=== PATIENT | male | born 1935 | race Caucasian/White ===

== ENCOUNTER 2017-10-18 12:44 | Inpatient (IN) ==
[2017-10-18 13:24] LABS: Basophils # (Auto) 0 K/mcL (0.0-0.3); Basophils % (Auto) 0.1 % (0.0-2.0); Eosinophils # (Auto) 0 K/mcL (0.0-0.7); Eosinophils % (Auto) 0.1 % (0.0-7.0); Granulocytes % (Auto) 80.4 % (38.0-78.0); Lymphocytes # (Auto) 0.7 K/mcL (1.5-4.8); Lymphocytes % (Auto) 6.9 % (15.5-49.0); Mean Cell Volume 97.7 fL (80.0-100.0); Mean Corpuscular Hemoglobin 32.3 pg (26.0-34.0); Monocytes # (Auto) 1.3 K/mcL (0.1-0.9); Monocytes % (Auto) 12.5 % (1.0-12.0); Platelet Count 129 K/mcL (140-440); RBC 3.73 M/mcL (4.50-5.90); Red Cell Distribution Width 14.5 % (11.5-14.5)
[2017-10-18] MEDS ORDERED: IPRATROPIUM/ALBUTEROL 3 ML AMPUL.NEB NEB ONE ×2 (13:38→18:26)
[2017-10-18 13:52] LABS: ALT/SGPT 97 U/l (0-40); Albumin 3.4 gm/dL (3.2-5.2); Alkaline Phosphatase 144 U/L (39-117); Blood Urea Nitrogen 28 mg/dl (8-23)
[2017-10-18] MEDS ORDERED: 0.9 % SODIUM CHLORIDE 1,000 ML IV ONE (14:07)
[2017-10-18 14:21] LABS: Appearance,Urine CLOUDY; Bacteria,Urine FEW /hpf (0); Bilirubin,Urine NEG (NEG); Color,Urine YELLOW; Glucose,Urine (UA) NEGATIVE (NEG); Leukocyte Esterase,Urine 500 /uL (NEG); Mucus,Urine MOD /hpf (0); Protein,Urine 30 mg/dL (NEG); Specific Gravity,Urine 1.014 (1.000-1.035); Urine Amorphous Crystals MOD /hpf (0); Urine Blood 0.03 mg/dL (<0.03); Urine Hyaline Cast 75 /lpf (0-2); Urine RBC 17 /hpf (0-1); Urine Squamous Epithelial Cell 0 /hpf (0-4); Urine Transitional Epi Cells 1 /hpf (0-2); Urine WBC > 182 /hpf (0-4); Urobilinogen,Urine NEG (NEG)
--- NOTE | 2017-10-18 14:39 | XRay Report ---
CLINICAL INFORMATION: Shortness of breath and hypoxia COMPARISON: None. FINDINGS: Heart size is accentuated by lordotic positioning is suboptimal inspiration. The heart is moderately enlarged. Automatic cardiac defibrillator is in satisfactory position. Ectatic thoracic aorta is noted - remainder of mediastinum and pulmonary vessels are normal. Right diaphragm is mildly elevated and there is mild bibasilar atelectasis. IMPRESSION: Moderate cardiomegaly but no evidence of CHF. Minor bibasilar atelectasis Interpreted and Authenticated by: Vinh Pierson 10/18/17
[2017-10-18] MEDS ORDERED: cefTRIAXone 1 GM VIAL IV ONE ×2 (15:10→19:30)
--- NOTE | 2017-10-18 15:17 | Emergency Department Note ---
General Adult HPI - General Chief complaint: Weakness Stated complaint: Weakness Time Seen by Provider: 10/18/17 13:25 Source: patient, family Mode of arrival: wheelchair Limitations: no limitations - History of Present Illness HPI Narrative: 82-year-old male with a two-week history of general malaise and weakness. 2 weeks ago he did have a bladder procedure by Dr. Reynolds and has an appointment in 2 days for follow-up on that. However since his procedure he has had decreased appetite and increasing weakness. He is on Coumadin for atrial fibrillation. In particular the weakness is especially at the right leg and he has had trouble getting that to work like it normally does. He does walk with a walker. He is also had increasing pain at the middle of his low back which is worse lately. Also having pain around the left thigh area. His notes increasing confusion. He is not on oxygen at home but today he is wheezing coughing up yellow sputum and oxygen saturations were 82% on room air on initial intake Patient recently moved from [facility] awaiting transfer to a new primary care doctor from Dr. Reggie Koo in [place] - Related Data Home Medications Medication Instructions Recorded Confirmed acetaminophen ER 650 mg 1 tab PO Q6H 04/23/16 10/18/17 tablet,extended release amiodarone 200 mg tablet 200 mg PO HS tab 04/23/16 10/18/17 atorvastatin 20 mg tablet 20 mg PO QPM tab 04/23/16 10/18/17 carvedilol 25 mg tablet 25 mg PO BID 04/23/16 10/18/17 cholecalciferol (vitamin D3) 1,000 2,000 unit PO QDAY tab 04/23/16 10/18/17 unit tablet fentanyl 12 mcg/hr transdermal 25 mcg TRANSDERMA Q72H 04/23/16 10/18/17 patch losartan 100 mg tablet 100 mg PO QDAY 04/23/16 10/18/17 ocular nutrition supplement 1 tab PO QDAY 04/23/16 10/18/17 pantoprazole 40 mg tablet,delayed 40 mg PO QDAY 04/23/16 10/18/17 release polyethylene glycol 3350 17 17 g PO QDAY 04/23/16 10/18/17 gram/dose oral powder potassium 99 mg tablet 99 mg PO QDAY 04/23/16 10/18/17 tamsulosin 0.4 mg capsule 0.4 mg PO QHS cap 04/23/16 10/18/17 vitamin B complex ER 1 tab PO QDAY 04/23/16 10/18/17 tablet,extended release warfarin 5 mg tablet 5 mg PO DAILY 04/23/16 10/18/17 furosemide 40 mg tablet 40 mg PO QDAY 04/08/17 10/18/17 Hydrocodon-Acetaminophen 5-325 2.5 mg PO Q6H 05/05/17 10/18/17 Ferrous Sulfate [Iron] 325 mg PO DAILY 09/29/17 10/18/17 rOPINIRole [Requip] 0.25 mg PO BID 09/29/17 10/18/17 Allergies Allergy/AdvReac Type Severity Reaction Status Date / Time ciprofloxacin [From Cipro] Allergy Mild Hives Verified 10/18/17 12:44 Hydralazine Allergy Unknown Unknown Verified 10/18/17 12:44 cephalexin [From Keflex] AdvReac Mild Gastrointestinal Verified 10/18/17 12:44 Upset Sulfa (Sulfonamide AdvReac Mild Gastrointestinal Verified 10/18/17 12:44 Antibiotics) Upset penicillin Allergy Mild Rash Uncoded 09/17/17 09:12 Review of Systems All systems ED: reviewed and negative except as stated. Past Medical History - Past Medical History Attestation: Yes: The following information was validated with the patient. Medical history: Reports: atrial fibrillation, cancer (Bladder), hyperlipidemia , hypertension, kidney stones, other (Macular degeneration, Gilbert's, cardiomyopathy, increased PSA, restless leg) Surgical history ED: Reports: heart valve replacement (Aortic), orthopedic, other (Carpal tunnel, foot), pacemaker/AICD, other (TURP) - Social History smoking status: Never smoker Physical Exam Fragile male appears mildly ill. Normocephalic atraumatic. Conjunctive are clear sclerae white and nonicteric. No nasal discharge but audible congestion. Nasal cannula placed at this time. Coughing during exam with yellow sputum production. Oropharynx is pink and moist. Neck is supple without lymphadenopathy thyromegaly or carotid bruit. Heart is regular rate and rhythm scattered perhaps 3 out of 6 early systolic murmur. Lungs are basically clear to auscultation bilaterally but he does have end expiratory wheeze throughout. Abdomen is soft nontender nondistended. No peritoneal signs or guarding. Bilateral psychology associate are normal. Moving against gravity his left leg does seem to be a little stronger than his right at the hip flexor. However this is subtle. He requires assistance to sit up in the bed. He is easily arousable and able answer questions appropriately Limitations: no limitations Course Vital Signs Temperature 98.7 F 10/18/17 12:44 Pulse Rate 60 10/18/17 12:44 Respiratory Rate 22 10/18/17 12:44 Blood Pressure 122/77 10/18/17 12:44 Pulse Oximetry (%) 83 L 10/18/17 12:44 Temperature 98.7 F 10/18/17 12:44 Pulse Rate 59 L 10/18/17 14:08 Respiratory Rate 20 10/18/17 14:08 Blood Pressure 153/85 10/18/17 14:08 Pulse Oximetry (%) 95 10/18/17 14:08 Medical Decision Making - Lab Data Lab results reviewed: Yes I reviewed the patient's lab results. Result diagrams: 10/18/17 12:58 10/18/17 12:58 Lab Results 10/18/17 10/18/17 10/18/17 Range/Units 12:58 12:58 12:58 WBC 10.7 (4.5-11.0) K/mcL RBC 3.73 L (4.50-5.90) M/mcL Hgb 12.0 L (13.5-16.5) g/dL Hct 36.4 L (41.0-55.0) % MCV 97.7 (80.0-100.0) fL MCH 32.3 (26.0-34.0) pg MCHC 33.0 (31.0-36.0) g/dL RDW 14.5 (11.5-14.5) % Plt Count 129 L (140-440) K/mcL MPV 7.9 (7.4-10.4) fL Gran % 80.4 H (38.0-78.0) % Lymph % (Auto) 6.9 L (15.5-49.0) % [place] % (Auto) 12.5 H (1.0-12.0) % Eos % (Auto) 0.1 (0.0-7.0) % Baso % (Auto) 0.1 (0.0-2.0) % Gran # 8.6 H (1.8-8.0) K/mcL Lymph # (Auto) 0.7 L (1.5-4.8) K/mcL [place] # (Auto) 1.3 H (0.1-0.9) K/mcL Eos # (Auto) 0 (0.0-0.7) K/mcL Baso # (Auto) 0 (0.0-0.3) K/mcL VBG Lactic Acid 2.0 (0.5-2.2) mmol/L Sodium 137 (133-145) mmol/L Potassium 3.9 (3.3-5.1) mmol/L Chloride 94 L (96-108) mmol/L Carbon Dioxide 34 H (22-30) mmol/L Anion Gap 9.0 (8-16) BUN 28 H (8-23) mg/dl Creatinine 1.4 H (0.7-1.2) mg/dl GFR Calculation 46 Glucose 119 H (70-105) mg/dL Calcium 10.6 H (8.6-10.4) mg/dl Total Bilirubin 2.6 H (0.0-1.0) mg/dL AST 101 H (0-37) U/l ALT 97 H (0-40) U/l Alkaline Phosphatase 144 H (39-117) U/L Total Protein 6.9 (5.9-8.4) gm/dL Albumin 3.4 (3.2-5.2) gm/dL Globulin 3.5 (2.2-3.7) gm/dL Albumin/Globulin Ratio 1.0 (1.0-2.3) Urine Color Urine Appearance Urine pH (5.0-9.0) Ur Specific [place] (1.000-1.035) Urine Protein (NEG) mg/dL Urine Glucose (UA) (NEG) mg/dL Urine Ketones (NEG) mg/dL Urine Occult Blood (<0.03) mg/dL Urine Nitrate (NEG) Urine Bilirubin (NEG) mg/dL Urine Urobilinogen (NEG) mg/dL Ur Leukocyte Esterase (NEG) /uL Urine RBC (0-1) /hpf Urine WBC (0-4) /hpf Ur Squamous Epith Cells (0-4) /hpf Ur Transition Epith Cell (0-2) /hpf Amorphous Crystals (0) /hpf Urine Bacteria (0) /hpf Hyaline Casts (0-2) /lpf Urine Mucus (0) /hpf Ur Culture Indicated? 10/18/17 Range/Units 13:46 WBC (4.5-11.0) K/mcL RBC (4.50-5.90) M/mcL Hgb (13.5-16.5) g/dL Hct (41.0-55.0) % MCV (80.0-100.0) fL MCH (26.0-34.0) pg MCHC (31.0-36.0) g/dL RDW (11.5-14.5) % Plt Count (140-440) K/mcL MPV (7.4-10.4) fL Gran % (38.0-78.0) % Lymph % (Auto) (15.5-49.0) % [place] % (Auto) (1.0-12.0) % Eos % (Auto) (0.0-7.0) % Baso % (Auto) (0.0-2.0) % Gran # (1.8-8.0) K/mcL Lymph # (Auto) (1.5-4.8) K/mcL [place] # (Auto) (0.1-0.9) K/mcL Eos # (Auto) (0.0-0.7) K/mcL Baso # (Auto) (0.0-0.3) K/mcL VBG Lactic Acid (0.5-2.2) mmol/L Sodium (133-145) mmol/L Potassium (3.3-5.1) mmol/L Chloride (96-108) mmol/L Carbon Dioxide (22-30) mmol/L Anion Gap (8-16) BUN (8-23) mg/dl Creatinine (0.7-1.2) mg/dl GFR Calculation Glucose (70-105) mg/dL Calcium (8.6-10.4) mg/dl Total Bilirubin (0.0-1.0) mg/dL AST (0-37) U/l ALT (0-40) U/l Alkaline Phosphatase (39-117) U/L Total Protein (5.9-8.4) gm/dL Albumin (3.2-5.2) gm/dL Globulin (2.2-3.7) gm/dL Albumin/Globulin Ratio (1.0-2.3) Urine Color Yellow Urine Appearance Cloudy Urine pH 5.0 (5.0-9.0) Ur Specific [place] 1.014 (1.000-1.035) Urine Protein 30 A (NEG) mg/dL Urine Glucose (UA) Negative (NEG) mg/dL Urine Ketones Neg (NEG) mg/dL Urine Occult Blood 0.03 A (<0.03) mg/dL Urine Nitrate Neg (NEG) Urine Bilirubin Neg (NEG) mg/dL Urine Urobilinogen Neg (NEG) mg/dL Ur Leukocyte Esterase 500 A (NEG) /uL Urine RBC 17 H (0-1) /hpf Urine WBC > 182 H (0-4) /hpf Ur Squamous Epith Cells 0 (0-4) /hpf Ur Transition Epith Cell 1 (0-2) /hpf Amorphous Crystals Mod A (0) /hpf Urine Bacteria Few A (0) /hpf Hyaline Casts 75 H (0-2) /lpf Urine Mucus Mod (0) /hpf Ur Culture Indicated? Yes - Radiology Data Radiology results reviewed: Yes I reviewed the patient's radiology results. Chest x-ray shows cardiomegaly and pacemaker. - EKG Data EKG #1 EKG attestation: Yes I reviewed and interpreted this EKG. EKG results narrative: EKG shows lots of artifact paced rhythm rate of 60 Disposition Pt seen by [facility] DESIGNER/PA only: No Clinical Impression: Community acquired pneumonia of right lower lobe of lung UTI (urinary tract infection) Qualifiers: Urinary tract infection type: acute cystitis Hematuria presence: with hematuria Qualified Code(s): N30.01 - Acute cystitis with hematuria Summary: After initial interview and exam patient is given a breathing treatment with DuoNeb which did seem to help some. Symptoms worrisome for worrisome and UTI versus kidney infection (pyelonephritis). Rocephin started for possible UTI: Labs and imaging consistent with UTI and right lower lobe pneumonia. Antibiotic choices limited by allergy list Discussed situation with patient's family and hospitalist. Patient will be admitted to Dr. Patel for further inpatient care Disposition: Xfer As Inpt ([facility]) Condition: Serious Referrals: Reggie Koo [Primary Care Provider] -
[2017-10-18] MEDS ORDERED: LACTATED RINGERS 1,000 ML IV ONE (16:41)
--- NOTE | 2017-10-18 17:32 | Internal Med History&Physical ---
Medical - H&P: HPI Patient information: Note initiated : 10/18/17 at 5:30 pm Service Date, if different from initiated Date: [] Patient: Hao Dwyer a 82 y/o M admitted on for Weakness. Chief Complaint: [] History of present illness: Mr. Dwyer is a 82 year old M with h/o chf, bladder cancer, afib, aortic valve replacement, AICD and pacemaker presents to the ER with complaints of back pain , weakness not feelign well x 2 days The patient had TURBT done 2 weeks ago and was doing well after the procedure, 2 days ago he noticed that he was getting weak, he had back pain, in the lower back, radiating down the left leg, worse with activity better with rest, weakness in left leg? but generally weak in both legs, his noticed he is more confused, he also had some cough with whitish dischage. Over the last few days he notes his urine color has changed from clear to yellow and he is going more often, he attributes that to use of lasix. the patient given his worsening condition came to the ER for further evaluation , in the ER he was hypoxic on presentation 83% on room air which corrected promplty with 2 L of oxygen, his labs showed mild renal dysfunction, hypercalcemia mild. His ua suggestive of UTI He underwent a CTA lungs neg for PE, right basilar pna, as per verbal report to ER provider by [facility], no acute findings on CT head and CT lumbar spine The patient admitted to the hospital for further management patient is weak but able to answer questions, daugther in law by the bed side who also filledi n some history, who notes she and her (pts son) is the poa. patient wishes to be full code Pt recently moved here from [facility], does not have a local pcp, have [facility] [place]. All systems: reviewed and no additional remarkable complaints except as stated ( as per hpi rest neg) Medical - H&P: PMH Medical history: Medical History (Last Reviewed 09/17/17 @ 09:13 by Arabella Macario RN) Bilateral wrist pain (Chronic) Low back pain (Chronic) Numbness of anterior thigh (Chronic) Macular degeneration (Chronic) Head trauma (Chronic) Anemia (Chronic) Renal lithiasis (Chronic) Intracerebral hematoma (Chronic) Degenerative joint disease (Chronic) Gilbert's syndrome (Chronic) Cardiomyopathy (Chronic) Aortic valvular disease (Chronic) Hyperlipidemia (Chronic) Pneumonia (Chronic) Atrial fibrillation (Chronic) Hypertension (Chronic) Elevated PSA (Chronic) Benign prostatic hypertrophy (Chronic) Bladder outlet obstruction (Chronic) Urinary frequency (Chronic) Blood in urine (Chronic) Bladder mass (Chronic) Surgical history: Past Surgical History (Last Reviewed 09/17/17 @ 09:13 by Arabella Macario, ANNIE) History of aortic valve replacement with porcine valve (Chronic) History of bilateral carpal tunnel release (Chronic) History of colonoscopy (Chronic) History of coronary artery bypass graft (Chronic) History of cystoscopy (Chronic) History of liver biopsy (Chronic) History of surgery (Chronic 09/27/13) Status post left inguinal herniorrhaphy (Chronic) Status post right foot surgery (Chronic) Pertinent family history: Family History (Last Reviewed 09/17/17 @ 09:13 by Arabella Macario, ANNIE) Other HTN (hypertension) Medical - H&P: Meds Home Medications Medication Instructions Recorded Confirmed Type acetaminophen ER 650 mg 1 tab PO Q6H 04/23/16 10/18/17 History tablet,extended release amiodarone 200 mg tablet 200 mg PO HS tab 04/23/16 10/18/17 History atorvastatin 20 mg tablet 20 mg PO QPM tab 04/23/16 10/18/17 History carvedilol 25 mg tablet 25 mg PO BID 04/23/16 10/18/17 History cholecalciferol (vitamin D3) 1,000 2,000 unit PO QDAY tab 04/23/16 10/18/17 History unit tablet fentanyl 12 mcg/hr transdermal 25 mcg TRANSDERMA Q72H 04/23/16 10/18/17 History patch losartan 100 mg tablet 100 mg PO QDAY 04/23/16 10/18/17 History ocular nutrition supplement 1 tab PO QDAY 04/23/16 10/18/17 History pantoprazole 40 mg tablet,delayed 40 mg PO QDAY 04/23/16 10/18/17 History release polyethylene glycol 3350 17 17 g PO QDAY 04/23/16 10/18/17 History gram/dose oral powder potassium 99 mg tablet 99 mg PO QDAY 04/23/16 10/18/17 History tamsulosin 0.4 mg capsule 0.4 mg PO QHS cap 04/23/16 10/18/17 History vitamin B complex ER 1 tab PO QDAY 04/23/16 10/18/17 History tablet,extended release warfarin 5 mg tablet 5 mg PO DAILY 04/23/16 10/18/17 History furosemide 40 mg tablet 40 mg PO QDAY 04/08/17 10/18/17 History Hydrocodon-Acetaminophen 5-325 2.5 mg PO Q6H 05/05/17 10/18/17 History Ferrous Sulfate [Iron] 325 mg PO DAILY 09/29/17 10/18/17 History rOPINIRole [Requip] 0.25 mg PO BID 09/29/17 10/18/17 History Allergies Allergy/AdvReac Type Severity Reaction Status Date / Time ciprofloxacin [From Cipro] Allergy Mild Hives Verified 10/18/17 12:44 Hydralazine Allergy Unknown Unknown Verified 10/18/17 12:44 cephalexin [From Keflex] AdvReac Mild Gastrointestinal Verified 10/18/17 12:44 Upset Sulfa (Sulfonamide AdvReac Mild Gastrointestinal Verified 10/18/17 12:44 Antibiotics) Upset penicillin Allergy Mild Rash Uncoded 09/17/17 09:12 Medical - H&P: Exam - Constitutional Vitals: Temp Pulse Resp BP Pulse Ox 98.7 F 59 L 26 H 132/75 94 10/18/17 12:44 10/18/17 17:26 10/18/17 17:26 10/18/17 17:26 10/18/17 17:26 Exam: GENERAL: The patient is a well-developed, well-nourished in no apparent distress. Is alert and oriented x3. VITAL SIGNS: Reviewed and as noted elsewhere. HEENT: Head is normocephalic and atraumatic. Extraocular muscles are intact. Pupils are equal, round, and reactive to light, left eye has increased secretions. Nares appeared normal. Mouth appears any without lesions. Mucous membranes are moist. NECK: Normal to inspection, Supple, No lymphadenopathy or thyromegaly. LUNGS: Air entry equal on both sides, prolonged exp phase noted, mild exp wheezing present, No accessory muscles of respiration HEART: Regular rate and rhythm normal, S1 and S2 heard, no Gallop, S3 or Rub Noted, No Gross murmur heard.(evaluated in ER) ABDOMEN: Soft, nontender, and nondistended. Positive bowel sounds. No hepatosplenomegaly was noted. EXTREMITIES: No cyanosis, clubbing, rash, lesions , edema present +++ NEUROLOGIC: Cranial nerves II through XII are grossly intact. Motor and Sensory System Grossly Intact, he has generalized weaknes in both lower exreities 2+-3 strength in both legs. upper extremity 4/5, lower extremity strength limited by pain as per pt PSYCHIATRIC: Normal affect, Normal Mood. Appropriate Behavior. SKIN: No ulceration or wounds noted, No jaundice, No rash noted. Medical - H&P: Reslt - Labs CBC & Chem 7: 10/18/17 12:58 10/18/17 12:58 Labs: Short CBC 10/18/17 Range/Units 12:58 WBC 10.7 (4.5-11.0) K/mcL Hgb 12.0 L (13.5-16.5) g/dL Hct 36.4 L (41.0-55.0) % Plt Count 129 L (140-440) K/mcL BMP 10/18/17 12:58 Sodium 137 Potassium 3.9 Chloride 94 L Carbon Dioxide 34 H BUN 28 H Creatinine 1.4 H Glucose 119 H Calcium 10.6 H Liver Function 10/18/17 Range/Units 12:58 Total Bilirubin 2.6 H (0.0-1.0) mg/dL AST 101 H (0-37) U/l ALT 97 H (0-40) U/l Alkaline Phosphatase 144 H (39-117) U/L Albumin 3.4 (3.2-5.2) gm/dL Urine 10/18/17 Range/Units 13:46 Urine Color Yellow Urine Appearance Cloudy Urine pH 5.0 (5.0-9.0) Ur Specific [place] 1.014 (1.000-1.035) Urine Protein 30 A (NEG) mg/dL Urine Glucose (UA) Negative (NEG) mg/dL Medical - H&P: A/P - Narrative A/P Narrative: A/P Pneumonia, no recent hospital stay, no h/o aspiration, treat as cap, ceftriaxone and zithromax, blood cx sent, will order sputum cx, mycoplasma, urine strep and urine legionella antigen ordered. Reactive airway disease- no h/o copd, but pt has wheezing on exam, duonebs q4hrs , budesonide for now, monitor. Acute hypoxic respiratory failure- supplemental oxygen via nasal canula, if worsens, consider bipap/ intubation. Urinary tract infection- IV rocephin, recent procedure done, await microbiology Bladder cancer- follows with DR Reynolds Back pain- chr issue on fentanyl for same, uses half of hydrocodone, use tylenol scheduled, oxycodone prn, continue fentnayl patch, await CT lumbar spine report. hypercalcemia- genesis 10.6 was normal before, dehydration? pt does have poor oral intake, did get IVF in the ER will trend for now Acute Kidney injury, creat is 1.4, baseline 10.-1.1, IVF given in ER, monitor, but he also got contrast, so could worsen, monitor for now. CHF/CAD/Afib?HLD- rate controlled, s/p aicd, pacemaker, on couamdin, check inr, resume amiodarone DVT on coumadin, check INR if subtherapeutic, start on hep sq Diet Cardiac Full code Social History - Social History marital status: occupational status: retired - Tobacco smoking status: Never smoker - Alcohol alcohol intake frequency: a few times a week - Substance use substance use type: does not use
[2017-10-18] MEDS ORDERED: ONDANSETRON 4 MG/2 ML VIAL IV PRN (17:54)
[2017-10-18] MEDS ORDERED: fentaNYL 12 MCG PATCH TD SCH (17:54)
[2017-10-18] MEDS ORDERED: MAGNESIUM HYDROXIDE 30 ML ORAL.SUSP PO PRN (17:54)
[2017-10-18] MEDS ORDERED: AZITHROMYCIN 500 MG in DEXTROSE 5% IN WATER 250 ML IV ONE (17:54)
[2017-10-18] MEDS ORDERED: BUDESONIDE 0.5 MG/2 ML AMPUL.NEB NEB ONE (18:27)
--- NOTE | 2017-10-18 19:11 | Cat Scan Report ---
CLINICAL INFORMATION: Right leg weakness COMPARISON: None. TECHNIQUE: 2.5 mm helical slices were obtained in the skull base to vertex. Following reconstruction, axial reformatted images were reviewed at bone and parenchymal windows. The exam was performed using radiation dose optimization techniques including, but not limited to, automated exposure control, adjustment of the mA and/or kV according to patient size and use of iterative reconstruction technique. FINDINGS: A moderate size remote cortical-based infarct of the lateral right temporal and posterior right frontal lobes is appreciated. The ventricles, sulci, fissures and cisterns are enlarged compatible with mild atrophy. Ex vacuo dilatation of the right lateral ventricle atria due to the adjacent infarct. No extra-axial fluid collection appreciated. Patchy chronic ischemic changes noted in the knee cerebral white matter. No intracerebral hemorrhage, mass effect or edema. 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 No acute findings Interpreted and Authenticated by: Vinh Pierson 10/18/17
[2017-10-18] MEDS: IPRATROPIUM/ALBUTEROL 3 ML AMPUL.NEB NEB SCH ×2 (19:15→23:45)
[2017-10-18] MEDS: BUDESONIDE 0.5 MG/2 ML AMPUL.NEB NEB SCH (19:15)
--- NOTE | 2017-10-18 19:27 | Cat Scan Report ---
CLINICAL INFORMATION: Wheezing and shortness of breath COMPARISON: None. TECHNIQUE: 80 cc of Isovue-300 were injected intravenously. Using SmartPrep to maximize pulmonary artery opacification, 2.5 mm helical slices were obtained from the lung apices through the lung bases. Following reconstruction, 2.5 mm sagittal, coronal, and axial reformations were processed. The exam was reviewed at mediastinal, lung, and bone windows. The exam was performed using radiation dose optimization techniques including, but not limited to, automated exposure control, adjustment of the mA and/or kV according to patient size and use of iterative reconstruction technique. FINDINGS: Pulmonary parenchymal windows show mild chronic bronchitis changes and patchy stranding airspace disease in both lower lobes which is likely scarring and atelectasis. No definite infiltrates. Tiny bilateral pleural effusions noted. Mediastinal windows show the pulmonary arteries are well opacified - no evidence of embolus. Thoracic aorta is normal in contour and caliber. Sternotomy/CABG changes noted. There is no adenopathy in the mediastinal hilar or axillary regions. Esophagus is normal. Heart is markedly enlarged. Pacemaker leads in satisfactory position Images through the abdomen show multiple tiny stones layering of the gallbladder with a single 16 mm stone. A few small cysts in the superior kidneys noted. The spleen and visualized liver are normal. Bone windows show moderate degenerative disc disease throughout the thoracic spine. A few old healed fractures of the right upper posterior ribs noted IMPRESSION: 1. No evidence of pulmonary embolus. 2. Moderate patchy, stranding airspace disease in both lower lobes likely combination of scarring and atelectasis. 3. Tiny bilateral pleural effusions 4. Cholelithiasis Interpreted and Authenticated by: Vinh Pierson 10/18/17
[2017-10-18] MEDS ORDERED: fentaNYL 25 MCG PATCH ONE (20:09)
--- NOTE | 2017-10-18 20:10 | Cat Scan Report ---
CLINICAL INFORMATION: Back pain COMPARISON: CT lumbar myelogram 12/19/2016 TECHNIQUE: 0.625 mm helical slices were obtained from the mid T12 through mid S2 vertebral bodies. Following reconstruction, 2.5 mm coronal, sagittal, and axial reformations (angle to the disc spaces) were processed. Exam was reviewed at bone and soft tissue windows.The exam was performed using radiation dose optimization techniques including, but not limited to, automated exposure control, adjustment of the mA and/or kV according to patient size and use of iterative reconstruction technique. FINDINGS: Mild leftward curve is again noted. No abnormal subluxation. There is minimal chronic wedging of the L1, L2, L3 and L4 vertebral bodies which is unchanged. There are no new osseous abnormalities. Soft tissues are normal. At T12-L1 and L1-2 there is minimal annular bulge and mild facet arthropathy. At L2-3, moderate broad disc protrusion and facet arthropathy result in mild central canal stenosis At L3-4, moderate broad disc spur complex and facet arthropathy result in moderate central canal and mild bilateral IV foraminal narrowing. At L4-5, mild broad disc spur complex and facet arthropathy result in mild central canal, moderate left and mild right IV foraminal narrowing possible thickening of the exiting left L4 nerve root At L5-S1, moderate broad disc spur complex with left-sided asymmetry results in mild left IV foraminal narrowing slightly impinging the exiting left L5 nerve root. There is moderate facet arthropathy IMPRESSION: 1. Multilevel degenerative change - stable since the lumbar myelogram CT nearly one year ago Interpreted and Authenticated by: Vinh Pierson 10/18/17
[2017-10-18] MEDS ORDERED: WARFARIN 5 MG TABLET PO ONE (20:45)
[2017-10-18] MEDS: ACETAMINOPHEN 325 MG TABLET PO SCH (21:10)
[2017-10-18] MEDS: ATORVASTATIN 20 MG TABLET PO SCH (21:11)
[2017-10-18] MEDS: rOPINIRole 0.25 MG TABLET PO SCH (21:11)
[2017-10-18] MEDS: AMIODARONE HCL 200 MG TABLET PO SCH (21:12)
[2017-10-18] MEDS: TAMSULOSIN 0.4 MG CAPSULE PO SCH (21:12)
[2017-10-18] MEDS ORDERED: fentaNYL 25 MCG PATCH TD SCH (22:00)
[2017-10-18] MEDS: 0.9 % SODIUM CHLORIDE 10 ML SYRINGE IV SCH (22:42)
[2017-10-19] MEDS: IPRATROPIUM/ALBUTEROL 3 ML AMPUL.NEB NEB SCH ×6 (03:01→22:01)
[2017-10-19 05:21] LABS: Basophils # (Auto) 0 K/mcL (0.0-0.3); Basophils % (Auto) 0 % (0.0-2.0); Eosinophils # (Auto) 0 K/mcL (0.0-0.7); Eosinophils % (Auto) 0.2 % (0.0-7.0); Granulocytes % (Auto) 83.2 % (38.0-78.0); Lymphocytes # (Auto) 0.6 K/mcL (1.5-4.8); Lymphocytes % (Auto) 5.6 % (15.5-49.0); Mean Corpuscular HGB Conc 32.9 g/dL (31.0-36.0); Mean Corpuscular Hemoglobin 32.5 pg (26.0-34.0); Monocytes # (Auto) 1.3 K/mcL (0.1-0.9); Platelet Count 145 K/mcL (140-440); RBC 3.56 M/mcL (4.50-5.90); Red Cell Distribution Width 14.6 % (11.5-14.5)
[2017-10-19 06:01] LABS: ALT/SGPT 111 U/l (0-40); Albumin 3.3 gm/dL (3.2-5.2); Alkaline Phosphatase 129 U/L (39-117); Bilirubin,Direct 0.4 mg/dL (0.0-0.3); Blood Urea Nitrogen 26 mg/dl (8-23); Gamma Glutamyl Transpeptidase 23 U/L (8-61); Uric Acid 3.8 mg/dL (2.5-8.0)
[2017-10-19] MEDS: CARVEDILOL 12.5 MG TABLET PO SCH ×2 (07:26→16:27)
[2017-10-19] MEDS ORDERED: VANCOMYCIN PER PHARMACY IV SCH (07:31)
[2017-10-19] MEDS: BUDESONIDE 0.5 MG/2 ML AMPUL.NEB NEB SCH ×2 (08:08→21:58)
[2017-10-19] MEDS: rOPINIRole 0.25 MG TABLET PO SCH ×2 (08:15→20:39)
[2017-10-19] MEDS: 0.9 % SODIUM CHLORIDE 10 ML SYRINGE IV SCH ×3 (08:15→23:21)
[2017-10-19] MEDS: ACETAMINOPHEN 325 MG TABLET PO SCH ×2 (08:15→14:57)
[2017-10-19] MEDS: VANCOMYCIN 1,500 MG in 0.9 % SODIUM CHLORIDE 500 ML IV SCH ×2 (08:42→20:38)
[2017-10-19] MEDS ORDERED: PANTOPRAZOLE 40 MG TABLET PO SCH (09:00)
[2017-10-19] MEDS ORDERED: cefTRIAXone 2 GM in DEXTROSE 5% IN WATER 50 ML IV SCH (09:00)
--- NOTE | 2017-10-19 13:09 | Internal Med Progress Note ---
Medical - PN: Subj Patient information: Note initiated : 10/19/17 at 1:06 pm Service Date, if different from initiated Date: [] Patient: Hao Dwyer a 82 y/o M admitted on 10/18/17 for Weakness. Chief Complaint: [] Interval history: Mr. Dwyer is a 82 year old M with h/o chf, bladder cancer, afib, aortic valve replacement, AICD and pacemaker presents to the ER with complaints of back pain , weakness not feelign well x 2 days The patient had TURBT done 2 weeks ago and was doing well after the procedure, 2 days ago he noticed that he was getting weak, he had back pain, in the lower back, radiating down the left leg, worse with activity better with rest, weakness in left leg? but generally weak in both legs, his noticed he is more confused, he also had some cough with whitish dischage. Over the last few days he notes his urine color has changed from clear to yellow and he is going more often, he attributes that to use of lasix. the patient given his worsening condition came to the ER for further evaluation , in the ER he was hypoxic on presentation 83% on room air which corrected promplty with 2 L of oxygen, his labs showed mild renal dysfunction, hypercalcemia mild. His ua suggestive of UTI He underwent a CTA lungs neg for PE, right basilar pna, as per verbal report to ER provider by [facility], no acute findings on CT head and CT lumbar spine The patient admitted to the hospital for further management patient is weak but able to answer questions, daugther in law by the bed side who also filledi n some history, who notes she and her (pts son) is the poa. patient wishes to be full code Pt recently moved here from [facility], does not have a local pcp, have applied to [facility] in [place]. 10/19 Patient seen and examined, no acute overnight events Patient still complains about back pain, CT reviewed radiology reports as no acute changes. The patient does not feel much improved compared to yesterday however appears to be clinically much better. Patient's WBC count is elevated compared to yesterday, blood cultures 2 out of 2 bottles positive for gram-positive, urine cultures showing enterococcus. Liver function test today is slightly worse. Echocardiogram has been ordered liver ultrasound has been ordered will follow through. If blood cultures are growing enterococcus then I will get a CT abdomen and pelvis given history of recent instrumentation. The patient did ambulate today with help of therapy, one-person assist according to the nursing staff Pertinent ROS: Denies headache, dizziness Denies chest pain, palpitations Denies cough or shortness of breath Denies abdominal pain, nausea or vomiting. Back pain present - Constitutional Vitals: Vital Signs Temp Pulse Resp BP Pulse Ox 98.3 F 59 L 18 136/70 92 10/19/17 12:05 10/19/17 12:05 10/19/17 12:05 10/19/17 12:05 10/19/17 12:05 Period Temp Pulse Resp BP Sys/Carpenter Pulse Ox Last 24 Hr 98.3 F-101.5 F 58-64 12-28 119-156/65-94 90-96 Intake and Output 10/18/17 10/19/17 10/19/17 21:59 05:59 13:59 Intake Total 1000 / 1000 250 / 250 270 / 270 Output Total 325 / 325 / 1 402 / 402 Balance 675 / 675 249 / 249 -132 / -132 Weight 209 lb Intake & Output: Intake & Output 10/18/17 10/19/17 10/19/17 21:59 05:59 13:59 Intake Total 1000 / 1000 250 / 250 270 / 270 Output Total 325 / 325 402 / 402 Balance 675 / 675 249 / 249 -132 / -132 Weight 209 lb Intake: IV 1000 / 1000 50 / 50 Sodium Chloride 0.9% 1,000 ml @ 1000 / 1000 Wide Open IV BOLUS ONE Rx#: [id number] Rocephin 2 gm In Dextrose 5% in 50 / 50 Water 50 ml @ 100 mls/hr IV DAILY KATRIN Rx#:[id number] Oral 250 / 250 220 / 220 Output: Void Amount 325 / 325 400 / 400 # of times incontinent of urine 2 / 2 Other: Meal Breakfast Percent of Meal Consumed 100% Feeding Ability Needs Supervision Medical - PN: Obj Da - Labs CBC & Chem 7: 10/19/17 03:55 10/19/17 03:55 Labs: Abnormal Lab Results 10/19/17 10/19/17 10/19/17 03:55 03:55 03:55 WBC 11.5 H RBC 3.56 L Hgb 11.6 L Hct 35.2 L RDW 14.6 H Plt Count Gran % 83.2 H Lymph % (Auto) 5.6 L [place] % (Auto) Gran # 9.5 H Lymph # (Auto) 0.6 L [place] # (Auto) 1.3 H PT 33.8 H INR 3.3 H Chloride Carbon Dioxide 34 H BUN 26 H Creatinine Glucose Calcium 10.5 H Total Bilirubin 1.9 H Direct Bilirubin 0.4 H AST 126 H ALT 111 H Alkaline Phosphatase 129 H Urine Protein Urine Occult Blood Ur Leukocyte Esterase Urine RBC Urine WBC Amorphous Crystals Urine Bacteria Hyaline Casts 10/18/17 10/18/17 10/18/17 13:46 12:58 12:58 WBC RBC Hgb Hct RDW Plt Count Gran % Lymph % (Auto) [place] % (Auto) Gran # Lymph # (Auto) [place] # (Auto) PT 27.8 H INR 2.6 H Chloride 94 L Carbon Dioxide 34 H BUN 28 H Creatinine 1.4 H Glucose 119 H Calcium 10.6 H Total Bilirubin 2.6 H Direct Bilirubin AST 101 H ALT 97 H Alkaline Phosphatase 144 H Urine Protein 30 A Urine Occult Blood 0.03 A Ur Leukocyte Esterase 500 A Urine RBC 17 H Urine WBC > 182 H Amorphous Crystals Mod A Urine Bacteria Few A Hyaline Casts 75 H 10/18/17 12:58 WBC RBC 3.73 L Hgb 12.0 L Hct 36.4 L RDW Plt Count 129 L Gran % 80.4 H Lymph % (Auto) 6.9 L [place] % (Auto) 12.5 H Gran # 8.6 H Lymph # (Auto) 0.7 L [place] # (Auto) 1.3 H PT INR Chloride Carbon Dioxide BUN Creatinine Glucose Calcium Total Bilirubin Direct Bilirubin AST ALT Alkaline Phosphatase Urine Protein Urine Occult Blood Ur Leukocyte Esterase Urine RBC Urine WBC Amorphous Crystals Urine Bacteria Hyaline Casts Meds: Medications Acetaminophen (Tylenol) 1,000 mg PO TID [facility] Last Admin: 10/19/17 08:15 Dose: 1,000 mg Albuterol/Ipratropium (Duoneb) 3 ml NEB Q4HRT [facility] Last Admin: 10/19/17 11:49 Dose: 3 ml Amiodarone HCl (Cordarone) 200 mg PO HS [facility] Last Admin: 10/18/17 21:12 Dose: 200 mg Atorvastatin Calcium (Lipitor) 20 mg PO QPM [facility] Last Admin: 10/18/17 21:11 Dose: 20 mg Budesonide (Pulmicort) 0.5 mg NEB Q12 [facility] Last Admin: 10/19/17 08:08 Dose: 0.5 mg Carvedilol (Coreg) 25 mg PO BIDCC [facility] Last Admin: 10/19/17 07:26 Dose: Not Given Fentanyl (Duragesic) 25 mcg TD Q72H [facility] Last Admin: 10/18/17 21:15 Dose: Not Given Azithromycin 250 mg/ Dextrose 250 mls @ 250 mls/hr IV DAILY [facility] Stop: 10/22/17 09:59 Ceftriaxone Sodium 2 gm/ (Dextrose) 50 mls @ 100 mls/hr IV DAILY [facility] Last Infusion: 10/19/17 08:46 Dose: Infused Vancomycin HCl 1,500 mg/ (Sodium Chloride) 500 mls @ 333.3 mls/hr IV Q12H [facility] Last Admin: 10/19/17 08:42 Dose: 333.3 mls/hr Magnesium Hydroxide (Milk Of Magnesia) 30 ml PO DAILYP PRN PRN Reason: Constipation Ondansetron HCl (Zofran) 4 mg IV Q6HP PRN PRN Reason: Nausea And Vomiting Oxycodone HCl (Roxicodone) 5 mg PO Q4HP PRN PRN Reason: PAIN LEVEL 3-6 Pantoprazole Sodium (Protonix) 40 mg PO ACB [facility] Ropinirole HCl (Requip) 0.25 mg PO BID [facility] Last Admin: 10/19/17 08:15 Dose: 0.25 mg Sodium Chloride (Saline Flush) 10 ml IV Q8 [facility] Last Admin: 10/19/17 08:15 Dose: 10 ml Tamsulosin HCl (Flomax) 0.4 mg PO QHS [facility] Last Admin: 10/18/17 21:12 Dose: 0.4 mg Vancomycin HCl (Vancomycin Per Pharmacy) 1 order IV [facility] [place] Warfarin Sodium (Coumadin Per Pharmacy) 1 order PO [facility] [place] Medical - PN: A/P - Time Spent With Patient Total time spent is greater than 50% in coordination of care (as documented) at patient's floor/unit and/or counseling patient: - Narrative A/P Narrative: A/P Pneumonia, no recent hospital stay, no h/o aspiration, treat as cap, ceftriaxone and zithromax, blood cx sent, will order sputum cx, mycoplasma, urine strep and urine legionella antigen ordered. Reactive airway disease- no h/o copd, but pt has wheezing on exam, duonebs q4hrs , budesonide for now, monitor. Acute hypoxic respiratory failure- supplemental oxygen via nasal canula, if worsens, consider bipap/ intubation. Urinary tract infection/ enterococcous species- IV rocephin, recent procedure done, , iV vanco added Gram positive bactermia 2/2, vanco added, repeat cx sent, echo to look for endocardiitis, consider CT abdomen pelvis given recent instrumentation in bladder. Bladder cancer- follows with DR Reynolds Back pain- chr issue on fentanyl for same, uses half of hydrocodone, use tylenol scheduled, oxycodone prn, continue fentnayl patch, hypercalcemia- calcium still elevated, monitor for now, give 1L saline infusion. Abnl LFT- get liver usg, Acute Kidney injury, resolved, creat is 1.1 today. continue hydration CHF/CAD/Afib?HLD- rate controlled, s/p aicd, pacemaker, on couamdin, check inr, resume amiodarone DVT on coumadin, management per pharamcy, inr 3.3 today Diet Cardiac Full cod daughter in law updated on the plan of care, Medical - PN: Qual - VTE Deep Vein Thrombosis/Pulmonary Embolism Present on Admission: No
[2017-10-19] MEDS ORDERED: 0.9 % SODIUM CHLORIDE 1,000 ML IV SCH (13:15)
[2017-10-19] MEDS: AZITHROMYCIN 250 MG in DEXTROSE 5% IN WATER 250 ML IV SCH (13:39)
--- NOTE | 2017-10-19 14:02 | Ultrasound Report ---
CLINICAL INFORMATION: Increased LFTs COMPARISON: 10/18/2017 CT. FINDINGS: Liver is normal in size configuration and echotexture without focal lesion. There are multiple stones within the gallbladder. Gallbladder wall is normal thickness - 2 mm. There is no focal tenderness over the gallbladder. Common bile duct is normal: 5 mm. Pancreas is unremarkable. No free fluid IMPRESSION: Liver is unremarkable. Cholelithiasis. Gallbladder and bile ducts are otherwise normal Interpreted and Authenticated by: Vinh Pierson 10/19/17
[2017-10-19] MEDS: ACETAMINOPHEN 500 MG TABLET PO SCH (20:38)
[2017-10-19] MEDS: AMIODARONE HCL 200 MG TABLET PO SCH (20:39)
[2017-10-19] MEDS: oxyCODONE HCL 5 MG TABLET PO PRN (20:39)
[2017-10-19] MEDS: ATORVASTATIN 20 MG TABLET PO SCH (20:39)
[2017-10-19] MEDS: TAMSULOSIN 0.4 MG CAPSULE PO SCH (20:39)
[2017-10-19] MEDS: ERTAPENEM 1 GM in 0.9 % SODIUM CHLORIDE 50 ML IV SCH (23:22)
[2017-10-20] MEDS: IPRATROPIUM/ALBUTEROL 3 ML AMPUL.NEB NEB SCH ×4 (02:02→15:27)
[2017-10-20] MEDS: oxyCODONE HCL 5 MG TABLET PO PRN (02:09)
[2017-10-20 05:37] LABS: Basophils # (Auto) 0 K/mcL (0.0-0.3); Basophils % (Auto) 0.1 % (0.0-2.0); Eosinophils # (Auto) 0.1 K/mcL (0.0-0.7); Eosinophils % (Auto) 0.8 % (0.0-7.0); Granulocytes % (Auto) 80.3 % (38.0-78.0); Lymphocytes # (Auto) 0.7 K/mcL (1.5-4.8); Lymphocytes % (Auto) 7.9 % (15.5-49.0); Mean Cell Volume 98.1 fL (80.0-100.0); Mean Corpuscular HGB Conc 33.4 g/dL (31.0-36.0); Mean Corpuscular Hemoglobin 32.8 pg (26.0-34.0); Monocytes % (Auto) 10.9 % (1.0-12.0); Platelet Count 135 K/mcL (140-440); RBC 3.53 M/mcL (4.50-5.90); Red Cell Distribution Width 14.4 % (11.5-14.5)
[2017-10-20 06:10] LABS: ALT/SGPT 103 U/l (0-40); Albumin 2.7 gm/dL (3.2-5.2); Albumin/Globulin Ratio 0.8 (1.0-2.3); Alkaline Phosphatase 136 U/L (39-117); Bilirubin,Direct 0.3 mg/dL (0.0-0.3); Blood Urea Nitrogen 27 mg/dl (8-23); Gamma Glutamyl Transpeptidase 19 U/L (8-61); Uric Acid 3.6 mg/dL (2.5-8.0)
[2017-10-20] MEDS: 0.9 % SODIUM CHLORIDE 10 ML SYRINGE IV SCH ×2 (06:47→15:02)
[2017-10-20] MEDS: BUDESONIDE 0.5 MG/2 ML AMPUL.NEB NEB SCH (07:04)
[2017-10-20] MEDS ORDERED: PANTOPRAZOLE 40 MG TABLET PO SCH (07:30)
[2017-10-20] MEDS ORDERED: IOPAMIDOL 100 ML BOTTLE IV ONE (09:44)
[2017-10-20] MEDS: CARVEDILOL 12.5 MG TABLET PO SCH (09:52)
[2017-10-20] MEDS: VANCOMYCIN 1,500 MG in 0.9 % SODIUM CHLORIDE 500 ML IV SCH (09:52)
[2017-10-20] MEDS: ACETAMINOPHEN 500 MG TABLET PO SCH ×2 (09:53→15:08)
[2017-10-20] MEDS: rOPINIRole 0.25 MG TABLET PO SCH (09:53)
--- NOTE | 2017-10-20 10:01 | Cat Scan Report ---
CLINICAL INFORMATION: Altered mental status. Urinary tract infection. COMPARISON: Previous chest CT scan dated 10/18/2017 TECHNIQUE: Axial images were obtained through the abdomen and pelvis. Sagittally and coronally reformatted images. 80 mL contrast material injected intravenously. Oral contrast material was administered FINDINGS: Mild bilateral lower lobe atelectasis and stranding. Findings are essentially unchanged. There is calcified plaque in the descending thoracic aorta and abdominal aorta. There is ectasia. Distal descending thoracic aorta measures 3.4 cm in cross-sectional diameter. There is pacemaker leads present. There is left atrial and ventricular enlargement. No pericardial fluid. Abdomen is suboptimally evaluated as the patient could not hold still or suspend respiration. Liver is negative. No focal intrahepatic abnormality. No mass. Liver contour is smooth. No evidence for cirrhosis. No ascites. Gallbladder is present. There are calcified gallstones in the dependent portion of the gallbladder. No dilated bile ducts. Spleen is negative. No splenomegaly. Normal enhancement of splenic and portal veins. Negative pancreas. No pancreatic mass. No peripancreatic abnormality. Negative adrenal glands. There are bilateral renal masses consistent with cysts. No evidence for solid mass. No hydronephrosis. No detectable calculi. No perinephric abscess. Urinary bladder is negative. No detectable mass. No calculus. There are prosthetic calcifications. Is prominent fecal material within the distal sigmoid colon and rectum. No diverticulitis. No detectable mass. No mechanical small bowel obstruction. Calcification of the abdominal aorta. No significant abdominal aortic aneurysm. No retroperitoneal or mesenteric adenopathy. No pneumoperitoneum. No biliary or portal venous gas. No pneumatosis. Multilevel degenerative disc disease. No compression fracture. No sacral or pelvic fracture. IMPRESSION: 1. Multiple renal cysts. No hydronephrosis or detectable calculi. No perinephric abscess 2. Cholelithiasis 3. Bilateral atelectasis. Findings are unchanged since 10/18/2017 4. Calcified atherosclerotic plaque. No significant abdominal aortic aneurysm. There is ectasia of the distal descending thoracic aorta and proximal abdominal aorta 5. No intra-abdominal abscess. 6. Prominent fecal material in the distal sigmoid colon and rectum The exam was performed using radiation dose optimization techniques including, but not limited to, automated exposure control, adjustment of the mA and/or kV according to patient size and use of iterative reconstruction technique. Interpreted and Authenticated by: Vinh Mayfield 10/20/17
[2017-10-20] MEDS: AZITHROMYCIN 250 MG in DEXTROSE 5% IN WATER 250 ML IV SCH ×2 (11:24→12:25)
--- NOTE | 2017-10-20 11:28 | XRay Report ---
INDICATION: Dyspnea TECHNIQUE: AP chest x-ray, upright portable COMPARISON: Chest x-ray dated 10/18/2017. Chest CT scan dated 10/18/2017. Abdominal and pelvic CT scan dated 10/20/2017 FINDINGS: Previous median sternotomy. No change in left transvenous pacemaker leads. Increased prominence of pulmonary vascularity. Mild interstitial edema is possible. No change in heart size. There is mildly increased density left retrocardiac region consistent with mild volume loss. Small left pleural effusion is demonstrated on abdominal CT scan dated 10/20/2017 No change in the sommer or mediastinum. IMPRESSION: 1. Mild left retrocardiac density consistent with mild atelectasis and small effusion 2. Increased prominence of the pulmonary vasculature consistent with pulmonary congestion and possible mild interstitial edema Interpreted and Authenticated by: Vinh Mayfield 10/20/17
[2017-10-20] MEDS ORDERED: FUROSEMIDE 20 MG/2 ML VIAL IV ONE ×2 (11:32→17:00)
--- NOTE | 2017-10-20 13:18 | Internal Med Progress Note ---
Medical - PN: Subj Patient information: Note initiated : 10/20/17 at 1:15 pm Service Date, if different from initiated Date: [] Patient: Hao Dwyer a 82 y/o M admitted on 10/18/17 for Weakness/Pneumonia, UTI. Chief Complaint: [] Interval history: Mr. Dwyer is a 82 year old M with h/o chf, bladder cancer, afib, aortic valve replacement, AICD and pacemaker presents to the ER with complaints of back pain , weakness not feelign well x 2 days The patient had TURBT done 2 weeks ago and was doing well after the procedure, 2 days ago he noticed that he was getting weak, he had back pain, in the lower back, radiating down the left leg, worse with activity better with rest, weakness in left leg? but generally weak in both legs, his noticed he is more confused, he also had some cough with whitish dischage. Over the last few days he notes his urine color has changed from clear to yellow and he is going more often, he attributes that to use of lasix. the patient given his worsening condition came to the ER for further evaluation , in the ER he was hypoxic on presentation 83% on room air which corrected promplty with 2 L of oxygen, his labs showed mild renal dysfunction, hypercalcemia mild. His ua suggestive of UTI He underwent a CTA lungs neg for PE, right basilar pna, as per verbal report to ER provider by [facility], no acute findings on CT head and CT lumbar spine The patient admitted to the hospital for further management patient is weak but able to answer questions, daugther in law by the bed side who also filledi n some history, who notes she and her (pts son) is the poa. patient wishes to be full code Pt recently moved here from [facility], does not have a local pcp, have applied to [facility] in [place]. 10/19 Patient seen and examined, no acute overnight events Patient still complains about back pain, CT reviewed radiology reports as no acute changes. The patient does not feel much improved compared to yesterday however appears to be clinically much better. Patient's WBC count is elevated compared to yesterday, blood cultures 2 out of 2 bottles positive for gram-positive, urine cultures showing enterococcus. Liver function test today is slightly worse. Echocardiogram has been ordered liver ultrasound has been ordered will follow through. If blood cultures are growing enterococcus then I will get a CT abdomen and pelvis given history of recent instrumentation. The patient did ambulate today with help of therapy, one-person assist according to the nursing staff 7/2 pt seen examined, overnight is more weak now, he has 4/4 bottles positive for GPC, urine culture is enterococcus, even anaerobic bottle was positive, on talking with the microbiloigst this looks like enterococus fecalis, sensitvity pending, repeat bc ordered today, Pt on vancomycin and ertapenum (rocephin stopped last night after anaerobic culture came back positive) CT abdomen is neg for acute findings CT spine reveiwed with radiology again, no acute findings reported Patient may need a REENA given peristent bactermia and h/o prosthetic valve, will await sensitivity and then talk to ID to get their opinion. family updated on the plan of care Pertinent ROS: Denies headache, dizziness Denies chest pain, palpitations Denies cough or shortness of breath Denies abdominal pain, nausea or vomiting. but appears more sick today, more weak - Constitutional Vitals: Vital Signs Temp Pulse Resp BP Pulse Ox 98 F 82 18 146/82 92 10/20/17 11:05 10/20/17 11:08 10/20/17 11:08 10/20/17 11:05 10/20/17 11:05 Period Temp Pulse Resp BP Sys/Carpenter Pulse Ox Last 24 Hr 97.4 F-98.9 F 60-82 18-26 132-146/71-82 91-94 Intake and Output 10/19/17 10/20/17 10/20/17 21:59 05:59 13:59 Intake Total 350 / 350 900 / 900 500 / 500 Output Total 675 / 675 575 / 575 2 / 2 Balance -325 / -325 325 / 325 498 / 498 Weight 205 lb 8 oz Intake & Output: Intake & Output 10/19/17 10/20/17 10/20/17 21:59 05:59 13:59 Intake Total 350 / 350 900 / 900 500 / 500 Output Total 675 / 675 575 / 575 2 / 2 Balance -325 / -325 325 / 325 498 / 498 Weight 205 lb 8 oz Intake: IV 250 / 250 500 / 500 500 / 500 Zithromax 250 mg In Dextrose 5% 250 / 250 in Water 250 ml @ 250 mls/hr IV DAILY [facility] Rx#:[id number] Vancomycin 1,500 mg In Sodium 500 / 500 500 / 500 Chloride 0.9% 500 ml @ 333.3 mls/hr IV Q12H [facility] Rx#: [id number] Oral 100 / 100 400 / 400 Output: Void Amount 675 / 675 575 / 575 # of times incontinent of urine 2 / 2 Exam: Constitutional; Afebrile, cooperative, drowsy, not in distress Eyes- No icterus, , No periorbital swelling Ears- Ext ear normal, hearing normal to conversation. Neck- Midline trachea, supple Respiratory system: Air Entry equal on both sides, mild bibasilar creackles noted. CVS- Rate rhythm regular, S1,S2 heard, no gallop, no rub.systolic murmur aortic region. Abdomen- Soft nontender abdomen, no organomegaly, no tenderness, no guarding or rigidity, NARROW FABRIC CALENDERER- AOOx3, moving all extremities, no gross focal deficit noted. Medical - PN: Obj Da - Labs CBC & Chem 7: 10/20/17 03:50 10/20/17 03:50 Labs: Abnormal Lab Results 10/20/17 10/20/17 10/20/17 03:50 03:50 03:50 WBC RBC 3.53 L Hgb 11.6 L Hct 34.6 L RDW Plt Count 135 L Gran % 80.3 H Lymph % (Auto) 7.9 L Scott % (Auto) Gran # Lymph # (Auto) 0.7 L Scott # (Auto) 1.0 H PT 39.4 H INR 4.0 H Chloride Carbon Dioxide 32 H Anion Gap 6.0 L BUN 27 H Creatinine Glucose Calcium Total Bilirubin 1.2 H Direct Bilirubin AST 121 H ALT 103 H Alkaline Phosphatase 136 H Lactate Dehydrogenase 290 H Albumin 2.7 L Albumin/Globulin Ratio 0.8 L Urine Protein Urine Occult Blood Ur Leukocyte Esterase Urine RBC Urine WBC Amorphous Crystals Urine Bacteria Hyaline Casts 10/19/17 10/19/17 10/19/17 03:55 03:55 03:55 WBC 11.5 H RBC 3.56 L Hgb 11.6 L Hct 35.2 L RDW 14.6 H Plt Count Gran % 83.2 H Lymph % (Auto) 5.6 L Scott % (Auto) Gran # 9.5 H Lymph # (Auto) 0.6 L Scott # (Auto) 1.3 H PT 33.8 H INR 3.3 H Chloride Carbon Dioxide 34 H Anion Gap BUN 26 H Creatinine Glucose Calcium 10.5 H Total Bilirubin 1.9 H Direct Bilirubin 0.4 H AST 126 H ALT 111 H Alkaline Phosphatase 129 H Lactate Dehydrogenase Albumin Albumin/Globulin Ratio Urine Protein Urine Occult Blood Ur Leukocyte Esterase Urine RBC Urine WBC Amorphous Crystals Urine Bacteria Hyaline Casts 10/18/17 10/18/17 10/18/17 13:46 12:58 12:58 WBC RBC Hgb Hct RDW Plt Count Gran % Lymph % (Auto) Scott % (Auto) Gran # Lymph # (Auto) Scott # (Auto) PT 27.8 H INR 2.6 H Chloride 94 L Carbon Dioxide 34 H Anion Gap BUN 28 H Creatinine 1.4 H Glucose 119 H Calcium 10.6 H Total Bilirubin 2.6 H Direct Bilirubin AST 101 H ALT 97 H Alkaline Phosphatase 144 H Lactate Dehydrogenase Albumin Albumin/Globulin Ratio Urine Protein 30 A Urine Occult Blood 0.03 A Ur Leukocyte Esterase 500 A Urine RBC 17 H Urine WBC > 182 H Amorphous Crystals Mod A Urine Bacteria Few A Hyaline Casts 75 H 10/18/17 12:58 WBC RBC 3.73 L Hgb 12.0 L Hct 36.4 L RDW Plt Count 129 L Gran % 80.4 H Lymph % (Auto) 6.9 L Scott % (Auto) 12.5 H Gran # 8.6 H Lymph # (Auto) 0.7 L Scott # (Auto) 1.3 H PT INR Chloride Carbon Dioxide Anion Gap BUN Creatinine Glucose Calcium Total Bilirubin Direct Bilirubin AST ALT Alkaline Phosphatase Lactate Dehydrogenase Albumin Albumin/Globulin Ratio Urine Protein Urine Occult Blood Ur Leukocyte Esterase Urine RBC Urine WBC Amorphous Crystals Urine Bacteria Hyaline Casts Meds: Medications Acetaminophen (Tylenol) 1,000 mg PO TID [facility] Last Admin: 10/20/17 09:53 Dose: 1,000 mg Albuterol/Ipratropium (Duoneb) 3 ml NEB Q4HRT [facility] Last Admin: 10/20/17 11:06 Dose: 3 ml Amiodarone HCl (Cordarone) 200 mg PO HS [facility] Last Admin: 10/19/17 20:39 Dose: 200 mg Atorvastatin Calcium (Lipitor) 20 mg PO QPM [facility] Last Admin: 10/19/17 20:39 Dose: 20 mg Budesonide (Pulmicort) 0.5 mg NEB Q12 [facility] Last Admin: 10/20/17 07:04 Dose: 0.5 mg Carvedilol (Coreg) 25 mg PO BIDCC [facility] Last Admin: 10/20/17 09:52 Dose: Not Given Fentanyl (Duragesic) 25 mcg TD Q72H [facility] Last Admin: 10/18/17 21:15 Dose: Not Given Azithromycin 250 mg/ Dextrose 250 mls @ 250 mls/hr IV DAILY [facility] Stop: 10/22/17 09:59 Last Admin: 10/20/17 12:25 Dose: 250 mls/hr Vancomycin HCl 1,500 mg/ (Sodium Chloride) 500 mls @ 333.3 mls/hr IV Q12H [facility] Last Infusion: 10/20/17 12:21 Dose: Infused Ertapenem 1 gm/ Sodium (Chloride) 50 mls @ 100 mls/hr IV Q24H [facility] Last Admin: 10/19/17 23:22 Dose: 100 mls/hr Magnesium Hydroxide (Milk Of Magnesia) 30 ml PO DAILYP PRN PRN Reason: Constipation Ondansetron HCl (Zofran) 4 mg IV Q6HP PRN PRN Reason: Nausea And Vomiting Oxycodone HCl (Roxicodone) 5 mg PO Q4HP PRN PRN Reason: PAIN LEVEL 3-6 Last Admin: 10/20/17 02:09 Dose: 5 mg Pantoprazole Sodium (Protonix) 40 mg PO ACB [facility] Last Admin: 10/20/17 06:47 Dose: 40 mg Ropinirole HCl (Requip) 0.25 mg PO BID [facility] Last Admin: 10/20/17 09:53 Dose: 0.25 mg Sodium Chloride (Saline Flush) 10 ml IV Q8 [facility] Last Admin: 10/20/17 06:47 Dose: 10 ml Tamsulosin HCl (Flomax) 0.4 mg PO QHS [facility] Last Admin: 10/19/17 20:39 Dose: 0.4 mg Vancomycin HCl (Vancomycin Per Pharmacy) 1 order [place] [facility] [place]farin Sodium (Coumadin Per Pharmacy) 1 order PO [facility] [place] Medical - PN: A/P - Time Spent With Patient Total time spent is greater than 50% in coordination of care (as documented) at patient's floor/unit and/or counseling patient: - Narrative A/P Narrative: A/P Pneumonia, no recent hospital stay, no h/o aspiration, treat as cap, on ertapenum and zithromax for now, Reactive airway disease- no h/o copd, no wheeze today on exam, duonebs q4hrs, budesonide for now, monitor. Acute hypoxic respiratory failure- supplemental oxygen via nasal canula, if worsens, consider bipap/ intubation. Urinary tract infection/ enterococcous species- iv vancomycin for now, Gram positive bactermia 2/2, vanco added, 4/4 bottles positive enterococcus fecalis, given prosthetic valve may need REENA, will review with ID once we have sensitivity. Bladder cancer- follows with DR Reynolds, CT neg Back pain- chr issue on fentanyl for same, uses half of hydrocodone, use tylenol scheduled, oxycodone prn, continue fentnayl patch, hypercalcemia-calcium back down to 10.1. Abnl LFT- liver usg neg acute findings. gall stones noted. .likely related to sepsis. Acute Kidney injury, resolved, creat is 1.1 today. continue hydration CHF/CAD/Afib?HLD- rate controlled, s/p aicd, pacemaker, on couamdin, check inr, resume amiodarone DVT on coumadin, management per pharamcy Diet Cardiac Full cod daughter in law updated on the plan of care, they are ok with xfer to higher center if needed Medical - PN: Qual - VTE Deep Vein Thrombosis/Pulmonary Embolism Present on Admission: No
[2017-10-20] MEDS: ERTAPENEM 1 GM in 0.9 % SODIUM CHLORIDE 50 ML IV SCH (15:08)
--- NOTE | 2017-10-20 15:29 | Transfer Summary ---
Transfer Discharge Sum: Prov Patient information: Note initiated : 10/20/17 at 3:23 pm Service Date, if different from initiated Date: [] Patient: Hao Dwyer 82 y/o M admitted on 10/18/17 for Weakness/Pneumonia, UTI. Chief Complaint: [] Date of admission: 10/18/17 17:53 Discharge Date: 10/20/17 Primary care physician: Reggie Koo Admitting clinician: Renetta Patel Consults: 10/18/17 16:31 Consult to Physician [CONS] Stat Comment: Consulting Provider: Renetta Patel Reason For Exam: Physician to Consult Discharging clinician: Renetta Patel [facility]charge Sum: Diag - Discharge Diagnosis (1) Endocarditis Status: Acute Transfer Discharge Sum: Med - Medications Active and Home Medications: Home Medications acetaminophen ER 650 mg tablet,extended release 1 tab PO Q6H 04/23/16 [History Confirmed 10/18/17] amiodarone 200 mg tablet 200 mg PO HS tab 04/23/16 [History Confirmed 10/18/17] atorvastatin 20 mg tablet 20 mg PO QPM tab 04/23/16 [History Confirmed 10/18/17 ] carvedilol 25 mg tablet 25 mg PO BID 04/23/16 [History Confirmed 10/18/17] cholecalciferol (vitamin D3) 1,000 unit tablet 2,000 unit PO QDAY tab 04/23/16 [History Confirmed 10/18/17] fentanyl 12 mcg/hr transdermal patch 25 mcg TRANSDERMA Q72H 04/23/16 [History Confirmed 10/18/17] losartan 100 mg tablet 100 mg PO QDAY 04/23/16 [History Confirmed 10/18/17] ocular nutrition supplement 1 tab PO QDAY 04/23/16 [History Confirmed 10/18/17] pantoprazole 40 mg tablet,delayed release 40 mg PO QDAY 04/23/16 [History Confirmed 10/18/17] polyethylene glycol 3350 17 gram/dose oral powder 17 g PO QDAY 04/23/16 [ History Confirmed 10/18/17] potassium 99 mg tablet 99 mg PO QDAY 04/23/16 [History Confirmed 10/18/17] tamsulosin 0.4 mg capsule 0.4 mg PO QHS cap 04/23/16 [History Confirmed ] vitamin B complex ER tablet,extended release 1 tab PO QDAY 04/23/16 [History Confirmed 10/18/17] warfarin 5 mg tablet 5 mg PO DAILY 04/23/16 [History Confirmed 10/18/17] furosemide 40 mg tablet 40 mg PO QDAY 04/08/17 [History Confirmed 10/18/17] Hydrocodon-Acetaminophen 5-325 2.5 mg PO Q6H 05/05/17 [History Confirmed ] Ferrous Sulfate [Iron] 325 mg PO DAILY 09/29/17 [History Confirmed 10/18/17] rOPINIRole [Requip] 0.25 mg PO BID 09/29/17 [History Confirmed 10/18/17] Active Medications Acetaminophen (Tylenol) 1,000 mg PO TID [facility] Last Admin: 10/20/17 15:08 Dose: 1,000 mg Albuterol/Ipratropium (Duoneb) 3 ml NEB Q4HRT [facility] Last Admin: 10/20/17 11:06 Dose: 3 ml Amiodarone HCl (Cordarone) 200 mg PO HS [facility] Last Admin: 10/19/17 20:39 Dose: 200 mg Atorvastatin Calcium (Lipitor) 20 mg PO QPM [facility] Last Admin: 10/19/17 20:39 Dose: 20 mg Budesonide (Pulmicort) 0.5 mg NEB Q12 [facility] Last Admin: 10/20/17 07:04 Dose: 0.5 mg Carvedilol (Coreg) 25 mg PO BIDCC [facility] Last Admin: 10/20/17 09:52 Dose: Not Given Fentanyl (Duragesic) 25 mcg TD Q72H [facility] Last Admin: 10/18/17 21:15 Dose: Not Given Furosemide (Lasix) 20 mg IV ONCE ONE Stop: 10/20/17 17:01 Azithromycin 250 mg/ Dextrose 250 mls @ 250 mls/hr IV DAILY [facility] Stop: 10/22/17 09:59 Last Infusion: 10/20/17 13:35 Dose: Infused Vancomycin HCl 1,500 mg/ (Sodium Chloride) 500 mls @ 333.3 mls/hr IV Q12H [facility] Last Infusion: 10/20/17 12:21 Dose: Infused Ertapenem 1 gm/ Sodium (Chloride) 50 mls @ 100 mls/hr IV Q24H [facility] Last Admin: 10/20/17 15:08 Dose: 100 mls/hr Magnesium Hydroxide (Milk Of Magnesia) 30 ml PO DAILYP PRN PRN Reason: Constipation Ondansetron HCl (Zofran) 4 mg IV Q6HP PRN PRN Reason: Nausea And Vomiting Oxycodone HCl (Roxicodone) 5 mg PO Q4HP PRN PRN Reason: PAIN LEVEL 3-6 Last Admin: 10/20/17 02:09 Dose: 5 mg Pantoprazole Sodium (Protonix) 40 mg PO ACB [facility] Last Admin: 10/20/17 06:47 Dose: 40 mg Ropinirole HCl (Requip) 0.25 mg PO BID [facility] Last Admin: 10/20/17 09:53 Dose: 0.25 mg Sodium Chloride (Saline Flush) 10 ml IV Q8 [facility] Last Admin: 10/20/17 15:02 Dose: Not Given Tamsulosin HCl (Flomax) 0.4 mg PO QHS [facility] Last Admin: 10/19/17 20:39 Dose: 0.4 mg Vancomycin HCl (Vancomycin Per Pharmacy) 1 order IV [facility] Warfarin Sodium (Coumadin Per Pharmacy) 1 order PO [facility] Transfer Discharge Sum: Hosp Hospital course: Mr. Dwyer is a 82 year old M with h/o chf, bladder cancer, afib, aortic valve replacement, AICD and pacemaker presents to the ER with complaints of back pain , weakness not feeling well x 2 days The patient had TURBT done 2 weeks ago and was doing well after the procedure, 2 days ago he noticed that he was getting weak, he had back pain, in the lower back, radiating down the left leg, worse with activity better with rest, weakness in left leg? but generally weak in both legs, his noticed he is more confused, he also had some cough with whitish discharge. Over the last few days he notes his urine color has changed from clear to yellow and he is going more often, he attributes that to use of lasix. The patient given his worsening condition came to the ER for further evaluation, in the ER he was hypoxic on presentation 83% on room air which corrected promptly with 2 L of oxygen, his labs showed mild renal dysfunction, hypercalcemia mild. His ua suggestive of UTI He underwent a CTA lungs neg for PE, right basilar pna, as per verbal report to ER provider by Radiology, no acute findings on CT head and CT lumbar spine The patient admitted to the hospital for further management patient wishes to be full code Pt recently moved here from [facility], does not have a local pcp, have applied to [facility] in [place]. UTI/ Enterococcus Fecalis Bactermia- UTI was initially treated with IV rocephin , when GPC was noted in blood and urine cx showed enterococcus, Vancomycin was added. High Grade Bactermia- Patient has had 6/8 bottles positive so far with GPC, Enterococcus fecalis, The patient has enterococcus in urine which is randall sensitive including penicillin, the sensitivity of blood cx bottles is pending. Given he has prosthetic valves, acute worsening of back pain, there is concern for endocarditis and possible diskitis. The patient had a Trans thoracic echo done which was unrevealing, his CT spine without contrast and CT abdomen pelvis did not show any spinal infection or source of infection. CT Abdomen was neg for acute pathology. I reviewed his case with infectious disease specialist in [place] Dr Wright, who advised pt will need a REENA and Infectious disease consult. We do not have REENA capability nor do we do an infectious disease specialist. Patient has AVR and is followed by theatre director Dr Vega in [facility]. Patient was presented to Dr Murray for transfer and he graciously accepted the transfer. Acute resp failure- On 2-4 L oxygen via [place]< due to mild chf as well as pneumonia. Treatment of underlying etiology. Abl LFT- Liver USG shows cholelithiasis, no cholecystitis, rising lft likely secondary to sepsis. Patient has life flight insurance and patient will be transferred via same Family updated on the plan of care, they are in agreement. - Time Spent with Patient Total time spent providing and/or coordinating transfer services: Greater than 30 minutes Transfer Discharge Sum: Exam - Constitutional Vitals: Vital Signs Temp Pulse Pulse Resp BP Pulse Ox 10/20/17 15:10 98.3 F 22 144/85 94 10/20/17 11:08 82 18 10/20/17 11:05 98 F 22 146/82 92 10/20/17 07:43 92 10/20/17 07:06 68 18 92 10/20/17 06:32 98.4 F 24 H 138/77 92 10/20/17 03:50 98.6 F 60 24 H 137/73 91 10/19/17 23:04 97.4 F 60 22 132/71 93 10/19/17 22:01 60 22 10/19/17 19:40 98.9 F 60 22 142/74 94 10/19/17 18:49 60 22 94 10/19/17 16:00 98.8 F 60 18 144/71 93 Intake and Output 10/20/17 10/20/17 10/20/17 05:59 13:59 21:59 Intake Total 950 / 950 750 / 750 1000 / 1000 Output Total 575 / 575 Balance 375 / 375 747 / 747 999 / 999 Intake: IV 550 / 550 750 / 750 Zithromax 250 mg In Dextrose 5% 250 / 250 in Water 250 ml @ 250 mls/hr IV DAILY [facility] Rx#:[id number] INVanz 1 GM In Sodium Chloride 50 / 50 0.9% 50 ml @ 100 mls/hr IV Q24H [facility] Rx#:[id number] Vancomycin 1,500 mg In Sodium 500 / 500 500 / 500 Chloride 0.9% 500 ml @ 333.3 mls/hr IV Q12H [facility] Rx#: [id number] Oral 400 / 400 1000 / 1000 Output: Void Amount 575 / 575 # of times incontinent of urine Additional comments: Constitutional; Afebrile, cooperative, drowsy, not in distress. Eyes- No icterus, , No periorbital swelling Ears- Ext ear normal, hearing normal to conversation. Neck- Midline trachea, supple Respiratory system: Air Entry equal on both sides, mild carlton crackles CVS- Rate rhythm regular, S1,S2 heard, no gallop, no rub.systolic murmur aortic region Abdomen- Soft nontender abdomen, no organomegaly, no tenderness, no guarding or rigidity, MOLDING ASSOCIATE- AOOx3, moving all extremities, no gross focal deficit noted. Transfer Discharge Sum: Data Procedures and tests throughout hospitalization: Pending Orders 10/18/17 12:53 Urine dipstick, poc measuremen NOW 10/18/17 13:26 Legionella Antigen Urine Stat 10/18/17 13:38 Nebulizer management .Routine 10/18/17 16:31 Consult to Physician [CONS] Stat 10/18/17 17:14 Resuscitation Status Routine 10/18/17 17:20 Cardiac Diet 10/18/17 17:54 Magnesium Hydroxide [Milk of Magnesia] 30 ml PO DAILYP PRN Ondansetron [Zofran] 4 mg IV Q6HP PRN oxyCODONE HCL [Roxicodone] 5 mg PO Q4HP PRN 10/18/17 18:09 Case Management Referral .Routine Admit as Inpatient Routine Ambulate-Progressive PRN Condition Routine IV Insertion/Management QSHIFT Notify Provider .routine Vital Signs Q4 Weight Monitoring QHS RD to Adjust Diet/Supplements as Needed Routine Occupational Therapy Eval & Tx DAILY Physical Therapy Eval & Tx DAILY Incentive Spirometry Assess/Tx Q2HWA Oxygen Order .Routine Speech Therapy Eval & Treat .Routine 10/18/17 18:20 Blood Culture Stat 10/18/17 19:00 Ipratropium/Albuterol [Duoneb] 3 ml NEB Q4HRT 10/18/17 21:00 Amiodarone HCl [Cordarone] 200 mg PO HS Atorvastatin [Lipitor] 20 mg PO QPM Budesonide [Pulmicort] 0.5 mg NEB Q12 Tamsulosin [Flomax] 0.4 mg PO QHS rOPINIRole [Requip] 0.25 mg PO BID 10/18/17 22:00 0.9 % Sodium Chloride [Saline Flush] 10 ml IV Q8 fentaNYL [Duragesic] 25 mcg TD Q72H 10/19/17 07:31 Vancomycin Per Pharmacy 1 order IV UD 10/19/17 08:00 Carvedilol [Coreg] 25 mg PO BIDCC 10/19/17 09:00 Vancomycin 1,500 mg 0.9 % Sodium Chloride [Sodium Chloride 0.9%] 500 ml IV Q12H 10/19/17 09:37 Blood Culture Urgent 10/19/17 12:00 Azithromycin [Zithromax] 250 mg Dextrose 5% in Water 250 ml IV DAILY 10/19/17 14:00 Warfarin Per Pharmacy [Coumadin Per Pharmacy] 1 order PO UD 10/19/17 21:00 Acetaminophen [Tylenol] 1,000 mg PO TID 10/19/17 23:15 Ertapenem [INVanz] 1 gm 0.9 % Sodium Chloride [Sodium Chloride 0.9%] 50 ml IV Q24H 10/20/17 07:30 Pantoprazole [Protonix] 40 mg PO ACB 10/20/17 08:20 Sputum Culture and Gram Stain Urgent 10/20/17 10:50 Blood Culture Urgent 10/20/17 17:00 Furosemide [Lasix] 20 mg IV ONCE ONE 10/21/17 04:00 Complete Blood Count DAILY Inpatient Panel DAILY Prothrombin Time INR DAILY 10/22/17 04:00 Complete Blood Count DAILY Inpatient Panel DAILY Prothrombin Time INR DAILY 10/23/17 04:00 Complete Blood Count DAILY Inpatient Panel DAILY Prothrombin Time INR DAILY 10/24/17 04:00 Complete Blood Count DAILY Inpatient Panel DAILY Prothrombin Time INR DAILY 10/25/17 04:00 Complete Blood Count DAILY Inpatient Panel DAILY Prothrombin Time INR DAILY Transfer Discharge Sum: A/P - Problem Maintenance (1) Endocarditis Status: Acute - Plan Overall status at transfer: patient is not back to baseline Disposition: [facility] Quality Measure Queries - VTE Deep Vein Thrombosis/Pulmonary Embolism Present on Admission: No
== END 2017-10-20 15:59 | disposition short-term general hospital (02) | DRG 288 ==
LOC: ED 12:44 → MEDSUR 17:50
PROVIDERS: ADMIT Internal Medicine; ATTEND Internal Medicine